=== PATIENT | male | born 1965 | race Two or more races ===

== ENCOUNTER 2022-03-01 07:30 | Emergency (ER) | payer OTHER, MEDICAID ==
[~2022-03-01] VITALS: Ht 180.3 cm; Wt 90.9 kg
[2022-03-01 07:30] VITALS: BP 128/87
[2022-03-01] MEDS ORDERED: HYDR-4902 PO (10:36)
[2022-03-01] MEDS ORDERED: CYCL-837 PO (10:36)
[2022-03-01] MEDS ORDERED: DICL50TA2 PO (10:36)
== END 2022-03-01 10:44 | disposition home or self-care (01) ==
LOC: EDBD 07:30 → ER 07:30
DX: S09.90XA Unspecified injury of head, initial encounter (principal); M62.838 Other muscle spasm; E11.9 Type 2 diabetes mellitus without complications; Z85.46 Personal history of malignant neoplasm of prostate; V43.53XA Car driver injured in collision with pick-up truck in traffic accident, initial encounter; Y93.89 Activity, other specified; Y92.89 Other specified places as the place of occurrence of the external cause; Y99.8 Other external cause status
CPT/HCPCS: 70450; 72125